=== PATIENT | male | born 1930 | race Caucasian/White ===

== ENCOUNTER → 2019-04-23 | Day surgery (SDC) | payer MEDICARE ==
[2019-04-19 10:46] LABS: BASOPHILS # (AUTO) 0.5 (0.0-0.1); BASOPHILS % 1.4 % (0.0-1.0); EOSINOPHILS # (AUTO) 0.6 (0.0-0.4); EOSINOPHILS % 1.7 % (0.0-6.0); HEMATOCRIT 49.1 % (38.2-49.6); HEMOGLOBIN 13.2 g/dL (14.0-18.0); LYMPHOCYTES # (AUTO) 13.1 (1.0-3.2); LYMPHOCYTES % 34.6 % (18.0-39.1); MEAN CORPUSCULAR HEMOGLOBIN 19.8 pg (28-32); MEAN CORPUSCULAR HGB CONC 26.9 g/dL (31-35); MEAN CORPUSCULAR VOLUME 73.8 fL (81-99); MONOCYTES # (AUTO) 1.4 (0.2-0.8); MONOCYTES % 3.7 % (4.4-11.3); NEUTROPHILS # (AUTO) 21.9 (2.1-6.9); NEUTROPHILS % 57.6 % (38.7-80.0); PLATELET COUNT 590 x10e3/uL (140-360); RED BLOOD COUNT 6.65 x10e6/uL (4.3-5.7); RED CELL DISTRIBUTION WIDTH 21.4 % (11.7-14.4)
[2019-04-19 11:00] LABS: INR 3.36; PROTHROMBIN TIME 34.8 seconds (11.9-14.5)
[2019-04-19 11:10] LABS: ALBUMIN 3.7 g/dL (3.5-5.0); ALBUMIN/GLOBULIN RATIO 1.3 (0.8-2.0); ANION GAP 10.5 mmol/L (8-16); CREATININE, SERUM 1.25 mg/dL (0.72-1.25); POTASSIUM 4.5 mmol/L (3.5-5.1)
[~2019-04-23] VITALS: Ht 182.9 cm; Wt 77.1 kg
[~2019-04-23] MED LIST: ALPRAZOLAM 0.5 MG TAB ONE; AMLODIPINE BESYL5 MG PO; ASPIRIN 325 MG TAB ONE; ASPIRIN81 MG PO; ATROPINE SULFATE 0.1 MG/ML 10ML SYR ONE; DIOVAN HCT 3201 EAC1 PO; DIOVAN160 MG PO; DIPHENHYDRAMINE HCL 25 MG CAP ONE; FENTANYL CITRATE/PF 100MCG/2 ML INJ ONE; HEPARIN SOD/SOD CHLORIDE 2,000 ML ONE; HYDROXYUREA500 MG PO; IOPAMIDOL 300MG/ML 100 ML INFUS..BTL IV ONE; IRBESARTAN-HCT1 EAC1 PO; IRON PO; LIDOCAINE HCL 2% LOCAL 20 ML VIAL ONE; METOPROLOL SUCC50 MG PO; MIDAZOLAM HCL 2 MG/2 ML VIAL ONE; NITROGLYCERIN/D5W 200 MCG/ML 250 ML ONE; PANTOPRAZOLE SO40 MG PO; SODIUM CHLORIDE 0.9% 1000ML 1,000 ML ONE; TICAGRELOR 90 MG TABLET ONE; VERAPAMIL HCL 2.5 MG/ML 2 ML VIAL ONE; XARELTO10 MG PO
[2019-04-23 11:45] VITALS: BP 166/63
--- NOTE | 2019-04-23 11:45 | NUR ---
pt in PACU 20, prepped for procedure. Alert oriented and appropriate, PERRLA, respirations even and unlabored to room air. Pulses x4 extremities equal and faint. Pedal pulses PT strong DP weak marked. bilateral pedal with edema Left > right +2-3 pitting. Cap fill brisk < 3 sec. Skin warm and dry integrity appears intact in general. IV 20g x1 started to left anterior forearm and presents healthy w/o s/s of infiltration or complaint. NS 0.9% started at 100ml/hr per dial flow. Abdomen soft and supple. pt offered toileting, denies need to urinate or defecate. Personal affects with patient. Family at bedside. Pt and family verbalizes understanding of POC. Pre-Op Meds benadryl and xanax given. bed low and locked, side rails up x2 and call light at side. -cgf
[2019-04-23 13:59] LABS: BASOPHILS # (AUTO) 0.4 (0.0-0.1); BASOPHILS % 1.3 % (0.0-1.0); EOSINOPHILS # (AUTO) 0.6 (0.0-0.4); EOSINOPHILS % 1.8 % (0.0-6.0); HEMATOCRIT 44.9 % (38.2-49.6); HEMOGLOBIN 12.1 g/dL (14.0-18.0); LYMPHOCYTES % 32.8 % (18.0-39.1); MEAN CORPUSCULAR HEMOGLOBIN 19.7 pg (28-32); MEAN CORPUSCULAR HGB CONC 26.9 g/dL (31-35); MONOCYTES # (AUTO) 1.3 (0.2-0.8); MONOCYTES % 4.2 % (4.4-11.3); PLATELET COUNT 568 x10e3/uL (140-360); RED BLOOD COUNT 6.15 x10e6/uL (4.3-5.7)
[2019-04-23 14:43] LABS: INR 1.31; PROTHROMBIN TIME 16.9 seconds (11.9-14.5)
[2019-04-23 16:30] VITALS: BP 141/89
--- NOTE | 2019-04-23 16:30 | NUR ---
1630 Received report Marito Deleon Rn, Identiferx2 Peripheral fix Dr Eid. Back to baseline orientation Respiration shallow and regular.100% sat on room air. Denies necessity to defecate or urinate. Peripheral iv infusing w/o s/s infiltration. Left Angioseal intact No gross issues pain pallor pressure or dysrhythmia. PPx4 intact Discharge planning done and hs copies aware of importance of f/o up care Dr Eid office. 1700 Iv removed site w/o s/s infiltration Coban dressing in place. Discharge home w/o c/o to private car with family medical van driver. Home with RN escort per w/c. ds/rn
[2019-04-23 16:45] VITALS: BP 163/77
[2019-04-23 17:00] VITALS: BP_SYST 135; BP_SYST 138; BP_DIAS 80; BP_DIAS 88
[2019-04-23 17:01] LABS: BAND NEUTROPHILS % (MANUAL) 1 %; EOSINOPHILS % (MANUAL) 1 % (0-7); LYMPHOCYTES % (MANUAL) 17 % (19-48); MONOCYTES % (MANUAL) 1 % (3.4-9.0); NEUTROPHILS % (MANUAL) 78 % (40-74)
[2019-04-23 17:04] LABS: PLATELET ESTIMATE MODERATELY INCREASED; RBC MORPHOLOGY COMMENT ABNORMAL
[2019-04-23 17:07] LABS: PLATELET MORPHOLOGY COMMENT MANY LARGE
[2019-04-23 17:10] LABS: ANISOCYTOSIS MODERATE; HYPOCHROMASIA SLIGHT; MICROCYTOSIS MODERATE; POIKILOCYTOSIS MARKED
[2019-04-23 17:12] LABS: ELLIPTOCYTE, RBC SLIGHT; OVALOCYTES FEW; TARGET CELLS FEW
[2019-04-23 17:14] LABS: SMUDGE CELLS MODERATE
--- NOTE | 2019-04-23 19:04 | Operative Report ---
DATE OF PROCEDURE: 04/23/2019 SURGEON: Meek Eid MD INDICATION: Peripheral arterial disease, claudication. PROCEDURES PERFORMED: 1. Abdominal aortogram. 2. Bilateral lower extremity angiograms. 3. Selective third-order catheter placement in the left femoral artery to the right superficial femoral artery. 4. Additional third-order catheter placement from the left femoral artery to the right anterior tibial artery. 5. Atherectomy and balloon angioplasty of the right popliteal artery. 6. Secondary thrombectomy of the right popliteal artery. 7. Atherectomy and balloon angioplasty of the right anterior tibial artery. 8. Deployment of left groin Perclose. COMPLICATIONS: None. BLOOD LOSS: 5 mL. RECOMMENDATIONS: Xarelto and aspirin for life. Staged intervention on the left femoral and anterior tibial artery. DESCRIPTION OF PROCEDURE: Access obtained in the left femoral artery. A 6-Estonian sheath was placed. Abdominal aortogram demonstrated widely patent abdominal aorta and iliacs bilaterally. Proximal femoral artery is widely patent. Left leg angiogram was performed demonstrating widely patent femoral popliteal arteries on the left side. Focal 90% stenosis of the ostial left anterior tibial artery with three-vessel runoff. Right leg runoff could not be well visualized. The catheter was then advanced from the left femoral artery to the right femoral artery. It had a 90% stenosis of the right popliteal artery at the knee joint was noted. Distal vessels could not be seen. The catheter then advanced to the right anterior tibial artery, 80% stenosis on the right anterior tibial artery is noted. Three vessel runoff. A decision was made to intervene on the right popliteal and anterior tibial arteries. The patient received heparin for anticoagulation. The sheath was exchanged to a 6-Estonian 45 cm sheath. Orbital atherectomy was performed of the right popliteal and anterior tibial artery. Large amounts of visible thrombus in the popliteal artery was noted. Manual aspiration secondary thrombectomy was needed. Balloon angioplasty of the anterior tibial artery with a 4 mm drug-coated balloon as well as the popliteal artery with a 6 mm drug-coated balloon was performed. Excellent end result. Three-vessel runoff. No complications. Left groin repaired using Perclose. The patient was discharged home same day. MD WHITLEY Vasquez/MODL /[id number]
== END | disposition home or self-care (01) ==
LOC: CATH LAB 11:15
PROVIDERS: ATTEND Internal Medicine Interventional Cardiology
DX: I70.211 Atherosclerosis of native arteries of extremities with intermittent claudication, right leg (principal); Z01.812 Encounter for preprocedural laboratory examination; Z79.02 Long term (current) use of antithrombotics/antiplatelets; Z79.82 Long term (current) use of aspirin; J44.9 Chronic obstructive pulmonary disease, unspecified
CPT/HCPCS: 36247; 36415 ×2; 37186; 37225; 37229; 75625; 80053; 85025 ×2; 85610 ×2; C1724; C1725 ×2; C1769 ×2; C1887 ×2; J2001; J2250; J7030; Q9967; 75716

== ENCOUNTER 2019-05-07 14:26 | Inpatient (IN) | payer MEDICARE ==
[~2019-05-07] VITALS: Ht 185.4 cm; Wt 73.0 kg
[~2019-05-07 14:26] MED LIST changes: -ALPRAZOLAM 0.5 MG TAB ONE; -ASPIRIN 325 MG TAB ONE; -ATROPINE SULFATE 0.1 MG/ML 10ML SYR ONE; -DIPHENHYDRAMINE HCL 25 MG CAP ONE; -FENTANYL CITRATE/PF 100MCG/2 ML INJ ONE; -HEPARIN SOD/SOD CHLORIDE 2,000 ML ONE; -IOPAMIDOL 300MG/ML 100 ML INFUS..BTL IV ONE; -LIDOCAINE HCL 2% LOCAL 20 ML VIAL ONE; -MIDAZOLAM HCL 2 MG/2 ML VIAL ONE; -NITROGLYCERIN/D5W 200 MCG/ML 250 ML ONE; -SODIUM CHLORIDE 0.9% 1000ML 1,000 ML ONE; -TICAGRELOR 90 MG TABLET ONE; -VERAPAMIL HCL 2.5 MG/ML 2 ML VIAL ONE
[2019-05-07] MEDS ORDERED: SODIUM CHLORIDE 0.9% 1000ML 1,000 ML IV STA (14:41)
[2019-05-07 15:55] LABS: BASOPHILS # (AUTO) 0.5 (0.0-0.1); BASOPHILS % 1.1 % (0.0-1.0); EOSINOPHILS # (AUTO) 0.5 (0.0-0.4); EOSINOPHILS % 1.1 % (0.0-6.0); HEMATOCRIT 42.3 % (38.2-49.6); HEMOGLOBIN 10.8 g/dL (14.0-18.0); LYMPHOCYTES # (AUTO) 17.8 (1.0-3.2); LYMPHOCYTES % 40.2 % (18.0-39.1); MEAN CORPUSCULAR HEMOGLOBIN 19.8 pg (28-32); MEAN CORPUSCULAR HGB CONC 25.5 g/dL (31-35); MEAN CORPUSCULAR VOLUME 77.5 fL (81-99); MONOCYTES # (AUTO) 1.1 (0.2-0.8); MONOCYTES % 2.6 % (4.4-11.3); NEUTROPHILS # (AUTO) 23.7 (2.1-6.9); NEUTROPHILS % 53.5 % (38.7-80.0); RED BLOOD COUNT 5.46 x10e6/uL (4.3-5.7); RED CELL DISTRIBUTION WIDTH 23.7 % (11.7-14.4)
[2019-05-07 16:01] LABS: INR 2.94; PROTHROMBIN TIME 31.4 seconds (11.9-14.5)
[2019-05-07 16:02] LABS: PARTIAL THROMBOPLASTIN TIME 56.4 seconds (23.8-35.5)
[2019-05-07 16:11] LABS: PLATELET COUNT 1255 x10e3/uL (140-360)
--- NOTE | 2019-05-07 16:33 | NUR ---
PT UPDATED ON POC/PENDING ORDERS. RE-DRAW DONE ON A GREEN TOP PER LAB; 1ST TUBE HEMOLYZED
[2019-05-07 17:01] LABS: ALANINE AMINOTRANSFERASE 13 IU/L (0-55); ALBUMIN 3.2 g/dL (3.5-5.0); ALBUMIN/GLOBULIN RATIO 1.3 (0.8-2.0); ALKALINE PHOSPHATASE 127 IU/L (40-150); ANION GAP 11.4 mmol/L (8-16); BLOOD UREA NITROGEN 25 mg/dL (7-26); BUN/CREATININE RATIO 23 (6-25); CALCIUM 8.2 mg/dL (8.4-10.2); CARBON DIOXIDE 19 mmol/L (22-29); CHLORIDE 107 mmol/L (98-107); CREATINE KINASE 38 IU/L (30-200); CREATININE, SERUM 1.09 mg/dL (0.72-1.25); EST GLOMERULAR FILTRATION RATE > 60 ML/MIN (60-); GLUCOSE 92 mg/dL (74-118); POTASSIUM 4.4 mmol/L (3.5-5.1); SODIUM 133 mmol/L (136-145)
--- NOTE | 2019-05-07 18:00 | Diagnostic Imaging Report ---
EXAM: CT of the abdomen and pelvis WITH contrast HISTORY: R/O RETROPERITONEAL HEMATOMA, weakness, abdominal distention COMPARISON: CT of the evident pelvis March 26, 2016. TECHNIQUE: The abdomen and pelvis were scanned utilizing a multidetector helical scanner. Coronal and sagittal reformats are provided. PROTOCOL: Routine IV CONTRAST: 100 cc of Isovue-370. ORAL CONTRAST: Water RADIATION DOSE: Total DLP: 282.9 mGy*cm Estimated effective dose: (DLP x 0.015 x size factor) Dose modulation, iterative reconstruction, and/or weight based adjustment of the mA/kV was utilized to reduce the radiation dose to as low as reasonably achievable. COMPLICATIONS: None FINDINGS: LOWER THORAX: Unremarkable. HEPATOBILIARY: No mass. No biliary dilation. Metallic clips in the right upper quadrant of the abdomen are compatible with prior cholecystectomy. SPLEEN: Interval increase in the size of the spleen, now 16.2 cm. PANCREAS: No focal masses or ductal dilatation. ADRENALS: No discrete adrenal nodule. KIDNEYS/URETERS: No hydronephrosis, stones, or definite solid mass lesions. PELVIC ORGANS/BLADDER: The visualized pelvic organs appear unremarkable. GI TRACT: No dilation or wall thickening identified. Colonic diverticulosis. The stomach is decompressed, which limits evaluation. PERITONEUM / RETROPERITONEUM: No free air or fluid. LYMPH NODES: No pathologically enlarged lymph node. VESSELS: Diffuse scattered atherosclerotic vascular calcifications. BONES: No aggressive osseous lesion or acute fracture. Multilevel degenerative changes, most notably at L4-5. SOFT TISSUES: Within the left anterior abdominal wall musculature, interval development of a iso to hyperintense, mildly heterogeneous collection measuring up to 6.7 cm (AP) x 8.5 cm (ML) x 21.5 cm (CC). IMPRESSION: Findings compatible with interval development of a left anterior abdominal wall intramuscular hematoma, correlate for potential underlying etiology. Signed by: Dr. Narinder Hernandez D.O., M.M.M. on 05/07/2019 5:56 PM
[2019-05-07] MEDS ORDERED: METOPROLOL SUC100 MG PO (19:05)
[2019-05-07] MEDS ORDERED: XARELTO15 MG PO (19:05)
[2019-05-07] MEDS ORDERED: AMLODIPINE BESY10 MG PO (19:05)
[2019-05-07] MEDS ORDERED: ONDANSETRON HCL INJ 2MG/ML 2ML 2 MG/ML VIAL IV PRN (19:15)
[2019-05-07] MEDS ORDERED: SODIUM CHLORIDE FLUSH 10 ML SYR INJ PRN (19:15)
[2019-05-07 20:11] LABS: BILIRUBIN,URINE NEGATIVE (NEGATIVE); CLARITY,URINE CLEAR (CLEAR); COLOR,URINE YELLOW (YELLOW); KETONES,URINE NEGATIVE (NEGATIVE); LEUKOCYTE ESTERASE ,URINE NEGATIVE (NEGATIVE); NITRITE,URINE NEGATIVE (NEGATIVE); PROTEIN,URINE DIPSTICK NEGATIVE (NEGATIVE); URINE UROBILINOGEN 0.2 mg/dL (0.2 - 1)
--- OUTSIDE RECORDS SUMMARY | 2019-05-07 20:19 | XMS REPORT ---
Author Author [facility] Address Unknown Phone Unavailable Care Team Providers Care Environmental Planning Engineer Name Role Phone Sherman GU Unavailable Unavailable Problems This patient has no known problems. Allergies, Adverse Reactions, Alerts This patient has no known allergies or adverse reactions. Medications This patient has no known medications. Results Test Description Test Time Test Comments Text Results Atomic Results Result Comments CT ABDOMEN/PELVIS W 2019-05-07 17:49:00 [place] [address] Patient Name: JO ANN WOOTEN MR #: [id number] : 1930 Age/Sex: 89/M Req #: [id number] Adm Physician: Ordered by: QUITA GU MD Report #: [id number] Location: ER Room/Bed: Procedure: [id number] CT/CT ABDOMEN/PELVIS W Exam Date: 05/07/19 Exam Time: 1725 REPORT STATUS: Signed EXAM: CT of the abdomen and pelvis WITH contrast HISTORY: R/O RETROPERITONEAL HEMATOMA, weakness, abdominal distention COMPARISON: CT of the evident pelvis March 26, 2016. TECHNIQUE: The abdomen and pelvis were scanned utilizing a multidetector helical scanner. Coronal and sagittal reformats are provided. PROTOCOL: Routine IV CONTRAST: 100 cc of Isovue-370. ORAL CONTRAST: Water RADIATION DOSE: Total DLP: 282.9 mGy*cm Estimated effective dose: (DLP x 0.015 x size factor) Dose modulation, iterative reconstruction, and/or weight based adjustment of the mA/kV was utilized to reduce the radiation dose to as low as reasonably achievable. COMPLICATIONS: None FINDINGS: LOWER THORAX: Unremarkable. HEPATOBILIARY: No mass. No biliary dilation. Metallic clips in the right upper quadrant of the abdomen are compatible with prior cholecystectomy. SPLEEN: Interval increase in the size of the spleen, now 16.2 cm. PANCREAS: No focal masses or ductal dilatation. ADRENALS: No discrete adrenal nodule. KIDNEYS/URETERS: No hydronephrosis, stones, or definite solid mass lesions. PELVIC ORGANS/BLADDER: The visualized pelvic organs appear unremarkable. GI TRACT: No dilation or wall thickening identified. Colonic diverticulosis. The stomach is decompressed, which limits evaluation. PERITONEUM / RETROPERITONEUM: No free air or fluid. LYMPH NODES: No pathologically enlarged lymph node. VESSELS: Diffuse scattered atherosclerotic vascular calcifications. BONES: No aggressive osseous lesion or acute fracture. Multilevel degenerative changes, most notably at L4-5. SOFT TISSUES: Within the left anterior abdominal wall musculature, interval development of a iso to hyperintense, mildly heterogeneous collection measuring up to 6.7 cm (AP) x 8.5 cm (ML) x 21.5 cm (CC). IMPRESSION: Findings compatible with interval development of a left anterior abdominal wall intramuscular hematoma, correlate for potential underlying etiology. Signed by: Bere BurrowsOYanci, M.M.M. on 05/07/2019 5:56 PM Dictated By: NICKIE PEDRAZA DO 56 Transcribed By: ARCELIA on 05/07/191755 COPY TO: QUITA GU MD
[2019-05-07 20:20] VITALS: BP 166/74
[2019-05-07 20:26] LABS: BACTERIA,URINE FEW /HPF; MUCUS,URINE FEW (RARE)
--- NOTE | 2019-05-07 20:30 | NUR ---
Pt arrived to the unit from er in a stretcher with c/o hypotension and diziness.as per pt statement he has blood disorder.assessment done.aaox3.no resp.distress.hematoma noted @ abd. and back. tele #1 placed sinus rhythm.ambulates with walker.voided.oriented to the unit.bed locked and in lowest position.phone and call light within reach.instructed to call for assistance as needed.
[2019-05-07 20:40] VITALS: BP 165/84
[2019-05-07 21:32] VITALS: BP 165/84
[2019-05-08] VITALS (8 sets, daily range): BP systolic 136–168; BP diastolic 60–75
[2019-05-08 00:05] LABS: HEMATOCRIT 43.3 % (38.2-49.6)
--- NOTE | 2019-05-08 00:15 | NUR ---
Fresh frozen plasma transfusion started after verifieing with Jitendra Mon.v/s stable.keep monitor the pt.
[2019-05-08 00:47] LABS: HEMOGLOBIN 11.7 g/dL (14.0-18.0)
--- NOTE | 2019-05-08 04:21 | NUR ---
FRESH FROZEN PLASMA TRANSFUSION COMPLETED.V/S STABLE.TOLERATED WELL.
[2019-05-08] MEDS ORDERED: IOPAMIDOL 370 MG/ML 200 ML INFUS..BTL INJ ONE (06:03)
[2019-05-08] MEDS ORDERED: SODIUM CHLORIDE 0.9% 50ML 50 ML ONE (06:03)
[2019-05-08 06:30] LABS: BASOPHILS # (AUTO) 0.5 (0.0-0.1); BASOPHILS % 1.1 % (0.0-1.0); EOSINOPHILS # (AUTO) 0.5 (0.0-0.4); HEMATOCRIT 39.9 % (38.2-49.6); HEMOGLOBIN 10.8 g/dL (14.0-18.0); LYMPHOCYTES # (AUTO) 18.5 (1.0-3.2); LYMPHOCYTES % 38.8 % (18.0-39.1); MEAN CORPUSCULAR HEMOGLOBIN 20.3 pg (28-32); MEAN CORPUSCULAR HGB CONC 27.1 g/dL (31-35); MEAN CORPUSCULAR VOLUME 74.9 fL (81-99); MONOCYTES # (AUTO) 1.3 (0.2-0.8); MONOCYTES % 2.7 % (4.4-11.3); NEUTROPHILS # (AUTO) 26.2 (2.1-6.9); NEUTROPHILS % 55.1 % (38.7-80.0); PLATELET COUNT 1167 x10e3/uL (140-360); RED BLOOD COUNT 5.33 x10e6/uL (4.3-5.7); RED CELL DISTRIBUTION WIDTH 23.3 % (11.7-14.4)
[2019-05-08 06:52] LABS: INR 1.6; PROTHROMBIN TIME 19.7 seconds (11.9-14.5)
--- NOTE | 2019-05-08 07:00 | NUR ---
Patient stated that had a small bowel movement and voided.report taken to the oncoming rn.walking rounds done.stable condition.
--- NOTE | 2019-05-08 07:00 | NUR ---
Rcvd patient in report this am. Patient is asleep in bed at this time. No s/s of distress noted
[2019-05-08 07:01] LABS: ANION GAP 12.1 mmol/L (8-16); CALCIUM 8.5 mg/dL (8.4-10.2); CREATININE, SERUM 2.26 mg/dL (0.72-1.25); POTASSIUM 4.1 mmol/L (3.5-5.1)
[2019-05-08] MEDS: DEXTROSE 5%/0.45% SOD CHL 1,000 ML IV SCH ×3 (10:27→22:52)
[2019-05-08] MEDS: PANTOPRAZOLE SOD 40 MG TABEC PO SCH ×2 (10:28→16:34)
--- NOTE | 2019-05-08 10:29 | NUR ---
EDUCATED ABOUT IMM, SIGNED, FILED IN CHART, WITH COPY LEFT WITH FAMILY AT BEDSIDE.
--- NOTE | 2019-05-08 12:20 | NUR ---
Patient is AAOx3. Patient lung boo clear to auscultation. Bowel sounds present x4. Patient having loose stools. New order for a sample to be obtained. Patient ambulates on his own with a walker. No edema noted. Patient has bruising and a hematoma to his abdomen. Bruising extends to his back as well. Patient is post op heart cath 2 weeks ago. NO c/o pain
--- NOTE | 2019-05-08 15:30 | Consultation ---
DATE OF CONSULTATION: 05/08/2019 REASON FOR CONSULTATION: Followup of myeloproliferative syndrome-polycythemia vera, admitted with hematoma. HISTORY OF PRESENT ILLNESS: Thank you very kindly, Dr. Ceja and Dr. Eid, for letting me participate in the care of this very pleasant 89-year-old male, who is well known to me. 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 He has been managed with phlebotomy targeting hematocrit of about 45. Hydroxyurea 500 mg, frequency adjusted based on his WBC count and platelet count along with 81 mg of aspirin had been used for managing his disease. He has done well without any complications from the disease or therapy. He also has been on Xarelto for atrial fibrillation. Additional comorbidities have included hypertension and chronic obstructive pulmonary disease. The patient had angioplasty and stent placement for his right femoral artery about 2 weeks back with left femoral artery approach. He was admitted to the hospital with complaints of weakness, feeling dizzy, and bluish-block discoloration of his lower abdominal area especially on the right side. I was called from the emergency room with abnormal CBC results with white count of 44,000, hemoglobin of 10.8, hematocrit of 42.3, and platelet count of 1.2 million. There is no history of fever. No history of gross bleeding from any site externally besides discoloration of the skin of the lower abdomen. The patient stated that he was asked to take aspirin, but did not take aspirin. Additional details for history are as documented in the chart. PHYSICAL EXAMINATION: GENERAL: An elderly gentleman, very comfortable in bed and able to carry on normal conversation. He did not offer any complaints this morning beside some weakness. VITAL SIGNS: As recorded in the chart. HEENT: Conjunctivae were little pale. There is no definite icterus. There is no palpable adenopathy. LUNGS: Clear except for prolonged expiration. CARDIAC: Heart size cannot be well demarcated. Rhythm is regular. ABDOMEN: Soft. There is extensive discoloration from the hematoma on the right side extending on to the left groin area. There is no pedal edema and no calf muscle tenderness. LABORATORY DATA: Admission labs revealed white count of 44.28 and followup today on 05/08 is 47.6. Hemoglobin was 10.8 on admission and stable this morning at 10.8, platelet count of 1.2 million on admission and 1.1 million today. IMAGING DATA: Imaging of the abdomen with CT revealed left anterior abdominal wall intramuscular hematoma. IMPRESSION: Polycythemia vera, myeloproliferative syndrome, MINERVA-2 mutation positive, diagnosed initially in 2003 and well controlled with combination of phlebotomy, hydroxyurea, now admitted with hematoma. The patient appears to be stable with hematocrit stabilizing yesterday. I had ordered 1 jumbo unit of fresh frozen plasma to be infused last night. I would hold aspirin and Xarelto at the present. Once he is stable for few days, Xarelto could be restarted and subsequently cautiously 81 mg of aspirin could also be restarted. He will continue on hydroxyurea 500 daily and after discharge, I will follow up in the office and adjust the dose of hydroxyurea based on his counts. Thank you most kindly for letting me participate in his care. Imani Nguyen MD MM/MODL /[id number] cc: Meek Eid MD
--- NOTE | 2019-05-08 18:10 | NUR ---
Per Dr. Ceja patient may be discharged tomorrow morning.
[2019-05-08] MEDS ORDERED: ACETAMINOPHEN 325 MG TAB PO PRN (18:15)
--- NOTE | 2019-05-08 19:02 | NUR ---
WALKING ROUNDS PERFORMED, RECEIVED PT LAYING SEMI FOWLERS IN BED. AAOX3, RR EVEN AND NON-LABORED, ON ROOM AIR. NO S/SX OF DISTRESS NOTED. LEFT PT LAYING SEMI FOWLERS IN BED, BED IN LOW LOCKED POSITION, SIDE RAILS UPX2, CALL LIGHT AND PHONE WITHIN REACH.
--- NOTE | 2019-05-08 19:05 | NUR ---
Report given and walking rounds done.
--- NOTE | 2019-05-08 20:42 | NUR ---
PAGE PLACED FOR MD CD FOR ORDER CLARIFICATION ON Q6 HEMATOCRIT. WAITING FOR CALL BACK.
--- NOTE | 2019-05-08 21:02 | NUR ---
SPOKE WITH MD DC CONCERNING ORDERS FOR Q6 HEMATOCRITS. OK TO STOP Q6 HEMATOCRITS AND TO RESTART XARELTO ON 05/10. NOTIFIED PHARMACY OF XARELTO RESTART.
--- NOTE | 2019-05-08 23:13 | Consultation ---
DATE OF CONSULTATION: 05/08/2019 Cardiology Consultation REASON FOR CONSULTATION: Syncope. HISTORY OF PRESENT ILLNESS: This is an 89-year-old man with history of peripheral arterial disease, status post recent right popliteal and anterior tibial artery atherectomy and drug-coated balloon angioplasty with resulting 3-vessel runoff below the knee with residual 90% stenosis of the left anterior tibial artery, atrial tachycardia, atrial fibrillation, COPD, and polycythemia vera with myeloproliferative syndrome, who was sent to the ER from clinic due to hypotension. The patient had recently undergone right lower extremity revascularization as above and was following up in the office for his postprocedure evaluation. At that time, he was noted to be significantly hypotensive with dizziness and near syncopal episodes. He was bolused and transported to the ER for further evaluation. In the ER, he was found to have a white count of 44,000 with a hemoglobin of 10.8 and platelets of 11,067. CT abdomen and pelvis was performed due to bruising on physical exam and the patient was found to have left anterior abdominal wall intramuscular hematoma. The patient was therefore admitted to the hospital for further evaluation. The patient currently denies cardiac complaints. Denies chest pain, shortness of breath, palpitations, edema, orthopnea, or PND. He reports his lightheadedness has since resolved, but notes he developed diarrhea earlier today. He denies any fever or chills. REVIEW OF SYSTEMS: Negative as per HPI. PAST MEDICAL HISTORY: 1. Peripheral arterial disease with recent revascularization as above. 2. Atrial fibrillation. 3. Hypertension. 4. COPD. 5. Polycythemia vera with myeloproliferative syndrome. PAST SURGICAL HISTORY: Cholecystectomy. ALLERGIES: PLEASE SEE EMR. MEDICATIONS: Please see medication list. SOCIAL HISTORY: No tobacco. FAMILY HISTORY: Noncontributory to current illness. PHYSICAL EXAMINATION: VITAL SIGNS: Temperature 96.5 degrees, pulse 52, respiratory rate 18, blood pressure 139/65, and oxygen saturation 99% on room air. GENERAL: Awake and alert elderly man, in no acute distress. HEENT: Normocephalic, atraumatic. Pupils equal. No scleral icterus. NECK: Supple. No thyroid or cervical lymphadenopathy. No carotid bruits. LUNGS: Clear to auscultation bilaterally. No wheezes or crackles. CARDIOVASCULAR: Normal rate. Regular rhythm. No murmur. Normal S1, S2. ABDOMEN: Soft, nontender. Ecchymosis is present on the abdomen. EXTREMITIES: No edema. Ecchymoses are also present at recent cardiac catheterization site. NEUROLOGIC: Nonfocal exam. LABORATORY DATA: WBC 47.65, hemoglobin 10.8, hematocrit 39.9, and platelets 11,067. Sodium 132, potassium 4.1, chloride 106, CO2 of 19, BUN 28, and creatinine 2.26. Telemetry, sinus bradycardia, otherwise normal ECG. IMPRESSION: 1. Hypotension, now resolved. 2. Abdominal wall intramuscular hematoma. 3. Leukocytosis. 4. Peripheral arterial disease with recent right lower extremity revascularization. 5. Hypertension. 6. Chronic obstructive pulmonary disease. 7. Atrial fibrillation. 8. Agree with holding anticoagulants and anti-platelet therapy at this time until H and H stabilize. Continue home cardiac medications otherwise. Monitor closely on telemetry since stool studies. Thank you for this consult. We will continue to follow. Rachel Wooten MD ABS/MODL /[id number]
--- NOTE | 2019-05-08 23:58 | Discharge Summary ---
HISTORY: An 89-year-old male, who has past medical history positive for peripheral vascular disease, status post recent stent placement on the right femoral artery by Dr. Eid, history of hypertension, history of polycythemia vera, history of myeloproliferative disorder. The patient apparently had a near syncopal episode at Dr. Eid's office. He was found to have abdominal wall hematoma. He was transferred to the hospital. Vital signs were stable. Hemoglobin and hematocrit were stable. The patient is going home tomorrow. PHYSICAL EXAMINATION: HEART: Showed regular rhythm. Normal S1 and S2 sound. LUNGS: Clear bilaterally. ABDOMEN: Soft. He has hematoma on the left flank area. EXTREMITIES: Show no evidence of cyanosis or hematoma. Pulses 1 to 2+ bilaterally. FINAL IMPRESSION: 1. Near syncopal episode. 2. Abdomen wall hematoma. 3. Peripheral vascular disease. 4. Hypertension with chronic renal insufficiency. 5. Myeloproliferative disorder. 6. Polycythemia vera. 7. Aic renal failure stage 3. PLAN OF TREATMENT: We are going to repeat BMP tomorrow. The patient will go home tomorrow to follow up with his primary care physician. Follow up with Dr. Eid, Cardiology and Dr. Nguyen, Hematology. He is going to continue hydroxyurea . MD BEN Paredes/JAN /[id number]
[2019-05-09] VITALS: BP 147/91
--- NOTE | 2019-05-09 02:03 | History and Physical ---
HISTORY OF PRESENT ILLNESS: An 89-year-old male, who has a past medical history positive for myelodysplastic syndrome, polycythemia vera, peripheral vascular disease, status post recent stent placement by Dr. Eid, Cardiology. He was waiting for Dr. Eid to see him. Apparently, had a near syncopal episode, came to the hospital. The patient was found to have elevated white blood count, hematoma of the abdomen, which is resolving. The patient is going to be discharged home tomorrow. The patient was seen by Dr. Nguyen, Hematology, who has treated the patient for polycythemia vera, myelodysplastic syndrome. The patient has no significant complaint. He is going to go home today. He will go home tomorrow. REVIEW OF SYSTEMS: CARDIOVASCULAR: No chest pain or palpitation. RESPIRATORY: No shortness of breath. No cough. GASTROINTESTINAL: No nausea. No vomiting. No diarrhea. GENITOURINARY: No frequency. No dysuria. ALLERGIES: HE IS NOT ALLERGIC TO ANYTHING. PAST MEDICAL HISTORY: 1. Peripheral vascular disease, status post recent stent placement. 2. Myeloproliferative syndrome. 3. Polycythemia vera. 4. Hypertension. SOCIAL HISTORY: He does not smoke, does not drink. PHYSICAL EXAMINATION: VITAL SIGNS: Blood pressure 151/67, temperature 96.6, heart rate 53 per minute, respiratory rate 20 per minute, and oxygen saturation 98%. HEART: Showed regular rhythm. Normal S1, S2 sound. LUNGS: Clear bilaterally. ABDOMEN: Soft. EXTREMITIES: Show no evidence of cyanosis or hematoma. LABORATORY DATA: On BMP; sodium 133, potassium 4.1, chloride 106, CO2 of 19, BUN 28, creatinine 2.26, and glucose 110. On CBC; white blood count 47.6, hemoglobin 10.8, hematocrit 42.4, and platelet count 116,000. PT 19.7, INR 1.60, PTT 48.0, AST 22, ALT 13, total bilirubin 2.3, and alkaline phosphatase 127. IMPRESSION: 1. Near syncopal episode. 2. Abdominal wall hematoma. 3. Peripheral vascular disease, status post stent placement in the right leg. 4. Hypertension with chronic renal insufficiency. 5. Myeloproliferative syndrome. 6. Acute on chronic renal failure stage 3. PLAN OF TREATMENT: Continue D5 normal saline at 100 mL an hour. Repeat BMP tomorrow. Continue Zofran 4 mg IV q.4 hours as needed, metoprolol 100 mg daily, hydroxyurea 500 mg daily, Protonix 40 mg twice a day. Resume home medication. We are going to repeat a BMP tomorrow. The patient is going home tomorrow. Follow up with Dr. Nguyen in a week. MD BEN Paredes/JAN /[id number]
[2019-05-09 04:00] VITALS: BP 151/64
[2019-05-09] MEDS: DEXTROSE 5%/0.45% SOD CHL 1,000 ML IV SCH (04:26)
[2019-05-09 05:51] LABS: BASOPHILS # (AUTO) 0.4 (0.0-0.1); EOSINOPHILS # (AUTO) 0.8 (0.0-0.4); EOSINOPHILS % 1.9 % (0.0-6.0); HEMATOCRIT 38.8 % (38.2-49.6); HEMOGLOBIN 10.1 g/dL (14.0-18.0); LYMPHOCYTES # (AUTO) 14.3 (1.0-3.2); LYMPHOCYTES % 35.6 % (18.0-39.1); MEAN CORPUSCULAR HEMOGLOBIN 20.3 pg (28-32); MEAN CORPUSCULAR VOLUME 78.1 fL (81-99); MONOCYTES # (AUTO) 1.4 (0.2-0.8); MONOCYTES % 3.4 % (4.4-11.3); NEUTROPHILS # (AUTO) 22.8 (2.1-6.9); NEUTROPHILS % 56.9 % (38.7-80.0); PLATELET COUNT 958 x10e3/uL (140-360); RED BLOOD COUNT 4.97 x10e6/uL (4.3-5.7); RED CELL DISTRIBUTION WIDTH 23.7 % (11.7-14.4)
[2019-05-09 06:14] LABS: ALBUMIN 2.8 g/dL (3.5-5.0); ALBUMIN/GLOBULIN RATIO 1.2 (0.8-2.0); ANION GAP 10.5 mmol/L (8-16); CALCIUM 8.1 mg/dL (8.4-10.2); CREATININE, SERUM 3.88 mg/dL (0.72-1.25); POTASSIUM 4.5 mmol/L (3.5-5.1)
[2019-05-09 08:46] VITALS: BP 154/67
[2019-05-09] MEDS: PANTOPRAZOLE SOD 40 MG TABEC PO SCH (08:58)
[2019-05-09] MEDS ORDERED: IRBESARTAN 150 MG TAB PO SCH (09:00)
[2019-05-09] MEDS ORDERED: AMLODIPINE BESYLATE 10 MG TAB PO SCH (09:00)
[2019-05-09] MEDS ORDERED: HYDROCHLOROTHIAZIDE 25 MG TAB PO SCH (09:00)
[2019-05-09] MEDS ORDERED: NON-FORMULARY MEDICATION (Metoprolol Succinate 100 MG) PO SCH (09:00)
[2019-05-09] MEDS ORDERED: METOPROLOL SUCCINATE 50 MG TAB XL PO SCH (09:00)
[2019-05-09] MEDS ORDERED: HYDROXYUREA 500 MG CAPSULE PO SCH (09:00)
--- NOTE | 2019-05-10 05:55 | Progress Note ---
DATE: 05/09/2019 Cardiology Progress Note SUBJECTIVE: The patient denies chest pain or shortness of breath. OBJECTIVE: VITAL SIGNS: Temperature 97.1 degrees, pulse 60, respiratory rate 18, blood pressure 154/57, and oxygen saturation 96% on room air. GENERAL: Awake, alert, in no acute distress. LUNGS: Clear to auscultation bilaterally. No wheezes or crackles. CARDIOVASCULAR: Normal rate, regular rhythm. No murmur. Normal S1, S2. ABDOMEN: Soft and nontender. EXTREMITIES: No edema. CARDIAC MEDICATIONS: Hydrochlorothiazide 12.5 mg p.o. daily, irbesartan 300 mg p.o. daily, amlodipine 10 mg p.o. daily, metoprolol succinate 100 mg p.o. daily. LABORATORY DATA: WBC 40.11, hemoglobin 10.1, hematocrit 38.8, platelets 958. Sodium 135, potassium 4.5, chloride 105, CO2 of 24, BUN 33, creatinine 3.88. Telemetry; normal sinus rhythm. IMPRESSION: 1. Hypotension, now resolved. 2. Abdominal wall intramuscular hematoma. 3. Leukocytosis. 4. Peripheral arterial disease with recent right lower extremity revascularization. 5. Hypertension. 6. Chronic obstructive pulmonary disease. 7. Atrial fibrillation. RECOMMENDATIONS: The patient's blood pressure is elevated. Recommend resuming amlodipine and metoprolol. Would hold irbesartan given acute kidney injury. Continue to hold Xarelto for now. Recommend resuming aspirin at this time as H and H have been relatively stable. Monitor closely on telemetry during admission. Send stool studies. Thank you for this consult. We will continue to follow. Rachel Wooten MD ABS/MODL /[id number]
[2019-05-10] MEDS ORDERED: RIVAROXABAN 15 MG TABLET PO SCH (17:00)
== END 2019-05-09 10:40 | disposition home or self-care (01) | DRG 605 ==
LOC: ER 14:26 → ERHOLD 20:16 → MED/SURG 20:26
PROVIDERS: ADMIT Internal Medicine; ATTEND Internal Medicine
DX: S30.1XXA Contusion of abdominal wall, initial encounter (principal); N17.9 Acute kidney failure, unspecified; C94.6 Myelodysplastic disease, not elsewhere classified; I73.9 Peripheral vascular disease, unspecified; D45 Polycythemia vera; I12.9 Hypertensive chronic kidney disease with stage 1 through stage 4 chronic kidney disease, or unspecified chronic kidney disease; N18.3 Chronic kidney disease, stage 3 (moderate); Z95.820 Peripheral vascular angioplasty status with implants and grafts; I48.91 Unspecified atrial fibrillation; Z79.01 Long term (current) use of anticoagulants; J44.9 Chronic obstructive pulmonary disease, unspecified
CPT/HCPCS: 36415; 74177; 80048; 80053; 81001; 82550; 82553; 84484; 85014; 85018; 85025; 85610; 85730; 86850; 86900; 87086; 93005; 99284; J7030; P9017; Q9967

== ENCOUNTER 2019-05-14 09:41 | Inpatient (IN) | payer MEDICARE ==
[~2019-05-14] VITALS: Ht 162.6 cm; Wt 78.1 kg
[~2019-05-14 09:41] MED LIST changes: +AMLODIPINE BESY10 MG PO; +METOPROLOL SUC100 MG PO; +XARELTO15 MG PO
--- NOTE | 2019-05-14 09:57 | NUR ---
DR GU AT BEDSIDE FOR BLADDER SCAN.
--- NOTE | 2019-05-14 10:10 | NUR ---
BLADDER SCAN REVEALED >1000 CC RESIDUAL URINE. PATIENT REPORTS BEING UNABLE TO URINATE X 7 DAYS. FLORES CATHETER ORDERED AND INSERTED PER POLICY, 1000 CC CLEAR URINE DRAINED. URINE SAMPLE OBTAINED AND SENT TO LAB. PATIENT TOLERATED WELL.
[2019-05-14 10:13] LABS: BASOPHILS # (AUTO) 0.6 (0.0-0.1); BASOPHILS % 1.1 % (0.0-1.0); EOSINOPHILS # (AUTO) 1.1 (0.0-0.4); EOSINOPHILS % 1.8 % (0.0-6.0); HEMOGLOBIN 12.7 g/dL (14.0-18.0); LYMPHOCYTES # (AUTO) 26.1 (1.0-3.2); LYMPHOCYTES % 44.8 % (18.0-39.1); MEAN CORPUSCULAR HEMOGLOBIN 20.6 pg (28-32); MEAN CORPUSCULAR HGB CONC 27.6 g/dL (31-35); MEAN CORPUSCULAR VOLUME 74.4 fL (81-99); MONOCYTES # (AUTO) 2.1 (0.2-0.8); MONOCYTES % 3.6 % (4.4-11.3); NEUTROPHILS # (AUTO) 27.4 (2.1-6.9); NEUTROPHILS % 46.8 % (38.7-80.0); PLATELET COUNT 1021 x10e3/uL (140-360); RED BLOOD COUNT 6.18 x10e6/uL (4.3-5.7); RED CELL DISTRIBUTION WIDTH 24.9 % (11.7-14.4)
[2019-05-14] MEDS ORDERED: SODIUM CHLORIDE 0.9% 1000ML 1,000 ML IV SCH (10:15)
[2019-05-14 10:22] LABS: BILIRUBIN,URINE NEGATIVE (NEGATIVE); CLARITY,URINE SL CLOUDY (CLEAR); COLOR,URINE YELLOW (YELLOW); KETONES,URINE NEGATIVE (NEGATIVE); LEUKOCYTE ESTERASE ,URINE NEGATIVE (NEGATIVE); NITRITE,URINE NEGATIVE (NEGATIVE); PROTEIN,URINE DIPSTICK NEGATIVE (NEGATIVE); URINE UROBILINOGEN 0.2 mg/dL (0.2 - 1)
[2019-05-14 10:24] LABS: INR 1.27; PROTHROMBIN TIME 16.5 seconds (11.9-14.5)
[2019-05-14 10:25] LABS: PARTIAL THROMBOPLASTIN TIME 43.8 seconds (23.8-35.5)
[2019-05-14 10:34] LABS: ALBUMIN 3.2 g/dL (3.5-5.0); ALBUMIN/GLOBULIN RATIO 0.9 (0.8-2.0); ANION GAP 19.4 mmol/L (8-16); CALCIUM 8.6 mg/dL (8.4-10.2); CREATININE, SERUM 11.19 mg/dL (0.72-1.25); POTASSIUM 5.4 mmol/L (3.5-5.1)
[2019-05-14 10:37] LABS: EPITHELIAL CELLS,URINE RARE /LPF
[2019-05-14 10:39] LABS: BACTERIA,URINE RARE /HPF
[2019-05-14] MEDS ORDERED: SODIUM BICARBONATE 8.4% 50 ML in SODIUM CHLORIDE 0.45% 1,000 ML IV SCH (11:30)
[2019-05-14] MEDS ORDERED: VANCOMYCIN 1GM/NS 250 ML 250 ML IV ONE (12:30)
[2019-05-14] MEDS ORDERED: HYDROCODONE BIT/ACETAMINOPHEN 2.5 MG/108MG PER 5 ML SOLUTION PO PRN ×2 (12:30→12:45)
--- NOTE | 2019-05-14 13:47 | Diagnostic Imaging Report ---
EXAMINATION: Renal ultrasound. CLINICAL HISTORY :Acute kidney injury COMPARISON: CT abdomen and pelvis 05/07/2019 TECHNIQUE: Grayscale and color Doppler evaluation of the kidneys and bladder was performed in transverse and longitudinal planes. DISCUSSION: RIGHT KIDNEY: The right kidney measures 10.8 cm in length and shows normal echogenicity. No hydronephrosis, shadowing calculi or solid mass lesions. LEFT KIDNEY: The left kidney measures 11.2 cm in length and shows normal echogenicity. No hydronephrosis, shadowing calculi or solid mass lesions. BLADDER: Collapsed around a Church catheter. Incidental splenomegaly, with the spleen measuring 15 cm. Complex left abdominal wall fluid collection compatible with rectus sheath hematoma seen to better advantage on comparison CT. IMPRESSION: Unremarkable sonographic appearance of the kidneys. Additional findings as above. Signed by: Dr. Brant Rodriguez M.D. on 05/14/2019 1:44 PM
[2019-05-14 14:49] LABS: EOSINOPHILS % (MANUAL) 1 % (0-7); LYMPHOCYTES % (MANUAL) 20 % (19-48); MONOCYTES % (MANUAL) 2 % (3.4-9.0); NEUTROPHILS % (MANUAL) 77 % (40-74)
[2019-05-14 14:50] LABS: RBC MORPHOLOGY COMMENT NORMAL
[2019-05-14 14:51] LABS: PLATELET ESTIMATE MODERATELY INCREASED; PLATELET MORPHOLOGY COMMENT MODERATE GIANT
--- NOTE | 2019-05-14 15:19 | NUR ---
FLORES CATHETER CLAMPED AT [address] GORMAN. FLORES TO BE UNCLAMPED AT 1815. PATIENT GOING TO ROOM 295 - [facility] NOTIFIED AT THIS TIME OF FLORES INSTRUCTIONS.
[2019-05-14] MEDS ORDERED: CEFTRIAXONE SOD 2 GM/NS 100 ML 100 ML IV ONE (15:45)
[2019-05-14 17:00] VITALS: BP 156/68
[2019-05-14 17:28] VITALS: BP 154/67
[2019-05-14 18:00] VITALS: BP 137/53
--- NOTE | 2019-05-14 18:15 | NUR ---
Church catheter unclamped as instructed by , draining 300 cc of clear yellow urine. pt denies discomfort at this time.
[2019-05-14] MEDS: SODIUM BICARBONATE 8.4% SYRING 150 ML in DEXTROSE 5% 1,000 ML IV SCH (19:40)
--- NOTE | 2019-05-14 19:50 | NUR ---
SMALL AMOUNT OF DRY BLOOD NOTED TO THE PENIS, FLORES CATHETER CARE PROVIDED. LEFT ARM ELEVATED ON PILLOW TO HELP WITH THE SWELLING, PATIENT DENIES PAIN AT THIS TIME. CALL LIGHT WITHIN EASY REACH, HIS SON IS AT THE BEDSIDE.
[2019-05-14 20:00] VITALS: BP 159/68
[2019-05-14] MEDS: TAMSULOSIN HCL 0.4 MG CAP PO SCH (21:38)
--- NOTE | 2019-05-14 22:08 | Consultation ---
DATE OF CONSULTATION: 05/14/2019 HISTORY OF PRESENT ILLNESS: An 89-year-old gentleman, who has underlying history of polycythemia vera, has been maintained on hydroxyurea. Recent peripheral angioplasty and stent placement complicated by ecchymosis and hematoma involving his right groin and abdominal wall. That is resolving. He went to Dr. Nguyen, who did a blood test, shows significantly elevated creatinine and abnormal labs. He was subsequently rerouted here to the ER, where he was found to have a sodium of 137, potassium 5.4, bicarbonate 17, creatinine 11.1 with a white count of 58,000, hemoglobin 12.7, platelets 102. His INR is 1.27. LFTs within normal range. He has been on irbesartan, hydrochlorothiazide, metoprolol, pantoprazole, hydroxyurea, and amlodipine at home. He is currently receiving IV bicarbonate. At this point in time, they placed a Church catheter, had about 1800 mL of urine thus far. The patient states that he had very poor urine output if at all in the last 48 hours. He is otherwise awake, alert, lying down comfortably, in no apparent distress. He denies any fever and chills. Denies any abdominal pain. He had a kidney ultrasound done today shows right kidney 10.8 cm. No hydro. Left kidney 11.2. No hydro. Incidental splenomegaly with spleen measuring 15 cm. Complex left abdominal wall fluid collection compatible with rectus sheath hematoma. The patient is an ex-smoker. Does not drink. Lives by himself. At the moment, denies any diarrhea, fever, or chills. His urinalysis shows specific gravity 10/20, rbc's 11 to 20, wbc's none. PHYSICAL EXAMINATION: GENERAL: Awake, alert, lying supine, in no apparent distress. VITAL SIGNS: Blood pressure of 125/49, pulse rate 55, afebrile, respiratory rate 18, oxygen saturation 100%. HEAD AND NECK: Chronically arcus senilis noted. Oral mucosa dry. Neck veins flat. LUNGS: Relatively clear. No rales. HEART: S1 and S2 audible. ABDOMEN: Still shows sign of fading ecchymosis. There is what appears to be mass obliquely placed over the rectus muscle, more towards the left hypochondrium area. Spleen felt. Normal hepatomegaly. Nontender abdomen, some mild ecchymosis noted over the right groin area. EXTREMITIES: Lower extremity, no edema. GENITOURINARY: Urine appears yellow. I will ask the nurse to clamp the Church catheter for 3 hours and then release. IMPRESSION: Obstructive uropathy. Underlying bladder neck obstruction, most likely due to prostate enlargement. We will discontinue the existing IV bicarb. We will start D5 water with 3 amps sodium bicarb at 100 mL an hour. Start Flomax 0.4 mg p.o. at bedtime. Please do not renew his home medication. Dr. Nguyen has been consulted. I suspect he may have chronic lymphocytic leukemia. He has been relatively afebrile. We will empirically give him one dose of IV antibiotic in the form of ceftriaxone. He has bladder instrumentation as well as urinary retention. Discussed with the patient and son. Further recommendations to follow. MD SHERRELL Winters/JAN /[id number]
[2019-05-15] VITALS (8 sets, daily range): BP systolic 143–162; BP diastolic 64–75
--- NOTE | 2019-05-15 00:07 | NUR ---
WALKING ROUNDS MADE, PATIENT RESTING COMFORTABLY IN BED WITHOUT ACUTE DISTRESS. HE DENIES PAIN, NO RESPIRATORY DISTRESS OBSERVED. CALL LIGHT WITHIN EASY REACH, HE'S INSTRUCTED TO CALL FOR ASSISTANCE NEEDED.
--- NOTE | 2019-05-15 02:29 | Consultation ---
DATE OF CONSULTATION: 05/14/2019 CONSULTATION REQUESTED: Dr. Abreu. REASON FOR CONSULTATION: Followup of myeloproliferative syndrome. HISTORY OF PRESENT ILLNESS: Thank you very kindly, Dr. Abreu for letting me participate in the care of this very pleasant 89-year-old male, who is well known to me. I have him in consultation last week when he was admitted with extensive hematoma of the abdomen following angiography and stent placement in his right popliteal artery. I have been following him for myeloproliferative syndrome, polycythemia vera and treated with phlebotomy and hydroxyurea for almost 15 years. He also has a background of atrial fibrillation, prior DVT and had been on Xarelto. The Xarelto was stopped after the hematoma was noted. He was in the office yesterday complaining of weakness and was clinically dehydrated. He received a bag of normal saline, felt better and went home, had labs drawn yesterday. The labs came back today revealing creatinine of 10. He was still feeling weak and poorly and was asked to report to the emergency room from where he was admitted to the hospital. There is no history of fever. No gross sully bleeding from any site today. He was admitted to the hospital and has been seen by Nephrology and is receiving fluids. I have reviewed the chart, interviewed the patient, examined him, and reviewed the labs. Significant findings include clinically dehydration. Lungs are clear. Abdomen is soft. LABORATORY DATA: White count is 58.36, hemoglobin 12.7, platelet count is 1.02 million. Chemistries revealed creatinine of 11.1, potassium is 5.4. IMPRESSION: Acute renal injury being managed by Nephrology, myeloproliferative syndrome with leukocytosis and thrombocytosis. We will start hydroxyurea 1 gram daily for 2 days, followed by 500 mg daily with followup CBC in 2 days. MD JANN Flanagan/JAN /[id number]
--- NOTE | 2019-05-15 03:35 | NUR ---
NO RESPIRATORY DISTRESS OBSERVED, PATIENT DENIES PAIN. IV FLUID INFUSING ORDERED, FLORES CATHETER DRAINING CLEAR NADEGE COLOR URINE.
[2019-05-15 06:46] LABS: BASOPHILS # (AUTO) 0.3 (0.0-0.1); BASOPHILS % 0.8 % (0.0-1.0); EOSINOPHILS # (AUTO) 0.7 (0.0-0.4); EOSINOPHILS % 1.8 % (0.0-6.0); HEMATOCRIT 37.9 % (38.2-49.6); HEMOGLOBIN 10.6 g/dL (14.0-18.0); LYMPHOCYTES # (AUTO) 14.3 (1.0-3.2); LYMPHOCYTES % 38.1 % (18.0-39.1); MEAN CORPUSCULAR HEMOGLOBIN 20.5 pg (28-32); MEAN CORPUSCULAR VOLUME 73.4 fL (81-99); MONOCYTES # (AUTO) 1.4 (0.2-0.8); MONOCYTES % 3.6 % (4.4-11.3); NEUTROPHILS # (AUTO) 20.4 (2.1-6.9); NEUTROPHILS % 54.3 % (38.7-80.0); PLATELET COUNT 743 x10e3/uL (140-360); RED BLOOD COUNT 5.16 x10e6/uL (4.3-5.7); RED CELL DISTRIBUTION WIDTH 23.9 % (11.7-14.4)
[2019-05-15 07:10] LABS: ALBUMIN 2.3 g/dL (3.5-5.0); ALBUMIN/GLOBULIN RATIO 0.9 (0.8-2.0); CALCIUM 7.7 mg/dL (8.4-10.2)
[2019-05-15 07:27] LABS: CREATININE, SERUM 2.45 mg/dL (0.72-1.25)
--- NOTE | 2019-05-15 07:30 | NUR ---
Bedside report received from YOSVANY Obando. Pt is resting comfortably in bed in no acute distress noted, he denies pain at this time. Redness, warmth, and swelling noted to right upper arm pt sts "it was from previous IV that was there" pt denies pain to site but requested not to use left arm for IV, blood draw or bp. Left arm elevated with a pillow.
[2019-05-15 08:07] LABS: EOSINOPHILS % (MANUAL) 2 % (0-7); LYMPHOCYTES % (MANUAL) 10 % (19-48); MONOCYTES % (MANUAL) 3 % (3.4-9.0); NEUTROPHILS % (MANUAL) 85 % (40-74)
[2019-05-15 08:08] LABS: ANISOCYTOSIS MODERATE
[2019-05-15 08:13] LABS: HYPOCHROMASIA SLIGHT
[2019-05-15 08:14] LABS: ELLIPTOCYTE, RBC SLIGHT; MICROCYTOSIS SLIGHT; OVALOCYTES FEW
[2019-05-15 08:15] LABS: PLATELET ESTIMATE MARKEDLY INCREASED; PLATELET MORPHOLOGY COMMENT NORMAL
[2019-05-15 08:16] LABS: LARGE PLATELETS FEW; RBC MORPHOLOGY COMMENT ABNORMAL
[2019-05-15] MEDS: SODIUM BICARBONATE 8.4% SYRING 150 ML in DEXTROSE 5% 1,000 ML IV SCH ×2 (08:16→15:03)
[2019-05-15] MEDS: HYDROXYUREA 500 MG CAPSULE PO SCH ×2 (09:00→16:31)
[2019-05-15] MEDS: DEXTROSE 5%/0.45% SOD CHL 1,000 ML IV SCH (18:00)
--- NOTE | 2019-05-15 18:01 | NUR ---
Pt requested assistance to ambulate to the bathroom to have a bm, specipan provided for pending stool collection but pt was not able to aim properly at this time, will endorse pending stool collection to oncoming nurse. Assisted pt back in bed. New order for D5 1/2 ns started.
--- NOTE | 2019-05-15 19:30 | NUR ---
change of shift report given to YOSVANY Bowden at bedside. Pt is resting comfortably in bed, resp even and unlabored, IVF infusing well to RFA. Instructed to use the call light for assistance. Pt verbalized understanding. Pt denies pain at this time.
[2019-05-15] MEDS: TERAZOSIN HCL 1 MG CAP PO SCH (22:02)
[2019-05-15] MEDS: TAMSULOSIN HCL 0.4 MG CAP PO SCH (22:02)
[2019-05-16] VITALS (7 sets, daily range): BP systolic 136–160; BP diastolic 65–71
[2019-05-16] MEDS: DEXTROSE 5%/0.45% SOD CHL 1,000 ML IV SCH (06:26)
[2019-05-16 06:34] LABS: BASOPHILS # (AUTO) 0.3 (0.0-0.1); BASOPHILS % 0.8 % (0.0-1.0); EOSINOPHILS # (AUTO) 0.5 (0.0-0.4); EOSINOPHILS % 1.5 % (0.0-6.0); HEMATOCRIT 36.6 % (38.2-49.6); HEMOGLOBIN 10.3 g/dL (14.0-18.0); LYMPHOCYTES # (AUTO) 12.2 (1.0-3.2); LYMPHOCYTES % 36.6 % (18.0-39.1); MEAN CORPUSCULAR HEMOGLOBIN 20.5 pg (28-32); MEAN CORPUSCULAR HGB CONC 28.1 g/dL (31-35); MEAN CORPUSCULAR VOLUME 72.9 fL (81-99); MONOCYTES # (AUTO) 1.1 (0.2-0.8); MONOCYTES % 3.3 % (4.4-11.3); NEUTROPHILS # (AUTO) 18.8 (2.1-6.9); NEUTROPHILS % 56.4 % (38.7-80.0); PLATELET COUNT 674 x10e3/uL (140-360); RED BLOOD COUNT 5.02 x10e6/uL (4.3-5.7); RED CELL DISTRIBUTION WIDTH 23.6 % (11.7-14.4)
[2019-05-16 06:57] LABS: ALANINE AMINOTRANSFERASE 12 IU/L (0-55); ALBUMIN 2.2 g/dL (3.5-5.0); ALBUMIN/GLOBULIN RATIO 0.8 (0.8-2.0); ALKALINE PHOSPHATASE 124 IU/L (40-150); ANION GAP 10.9 mmol/L (8-16); BLOOD UREA NITROGEN 18 mg/dL (7-26); BUN/CREATININE RATIO 19 (6-25); CALCIUM 7.8 mg/dL (8.4-10.2); CARBON DIOXIDE 25 mmol/L (22-29); CHLORIDE 104 mmol/L (98-107); EST GLOMERULAR FILTRATION RATE > 60 ML/MIN (60-); GLUCOSE 134 mg/dL (74-118); POTASSIUM 3.9 mmol/L (3.5-5.1); SODIUM 136 mmol/L (136-145)
--- NOTE | 2019-05-16 07:00 | NUR ---
Bedside report and rounds done. no s/s of distress
[2019-05-16 07:44] LABS: CREATININE, SERUM 0.94 mg/dL (0.72-1.25)
[2019-05-16] MEDS: HYDROXYUREA 500 MG CAPSULE PO SCH (09:21)
[2019-05-16 13:45] LABS: OCCULT BLOOD STOOL POSITIVE (NEGATIVE)
[2019-05-16 14:53] LABS: C DIFFICILE TOXIN A&B AMP PROB NEGATIVE (NEGATIVE)
--- NOTE | 2019-05-16 20:05 | NUR ---
PT SLEEPING COMFORTABLY IN BED AT THIS TIME. RESPIRATIONS ARE REGULAR, EVEN, PT APPEARS IN NO DISTRESS. BED IS LOCKED AND IN LOW POSITION. CALL LIGHT IS IN REACH.
[2019-05-16] MEDS: TAMSULOSIN HCL 0.4 MG CAP PO SCH (21:09)
[2019-05-16] MEDS: TERAZOSIN HCL 1 MG CAP PO SCH (21:11)
[2019-05-17] VITALS (9 sets, daily range): BP systolic 125–184; BP diastolic 62–96
--- NOTE | 2019-05-17 07:00 | NUR ---
received am report from rn. pt is resting comfortably in bed, no s/s of distress. call light is within reach, bed in lowest position, side rails up.
[2019-05-17] MEDS: HYDROXYUREA 500 MG CAPSULE PO SCH (09:01)
--- NOTE | 2019-05-17 16:29 | NUR ---
IMM LETTER EXPLAINED TO PT. PT VERBALIZED UNDERSTANDING. IMM LETTER SIGNED. COPY TO PT AND COPY TO CHART. PT STATES HE WOULD LIKE HOME HEALTH WHEN DC'D. CALLED TO SH[facility] ALEX; FRIEND @ [phone], FOR NAME OF RECOMMENDED HH AGENCY. NO ANSWER. SHANE CALLED . STATES HER PARENTS USE [facility] AND HAVE RECEIVED GOOD SERVICES. CHOICE LETTER WAS SIGNED BY THE PT. NOTE LEFT FOR DR. NORMAN FOR AN ORDER FOR HOME HEALTH.
--- NOTE | 2019-05-17 21:12 | NUR ---
spoke with dr. Abreu regarding elevated bp and hr, orders to renew home meds- amlodipine and metoprolol- first dose now. orders entered, and implemented. will continue to monitor the patient.
[2019-05-17] MEDS ORDERED: NON-FORMULARY MEDICATION (Metoprolol Succinate 100 MG) PO SCH (21:15)
[2019-05-17] MEDS: TAMSULOSIN HCL 0.4 MG CAP PO SCH (21:33)
[2019-05-17] MEDS: METOPROLOL SUCCINATE 50 MG TAB XL PO SCH (21:33)
[2019-05-17] MEDS: AMLODIPINE BESYLATE 10 MG TAB PO SCH (21:33)
[2019-05-18] VITALS (9 sets, daily range): BP systolic 124–152; BP diastolic 58–67
[2019-05-18 07:17] LABS: BASOPHILS # (AUTO) 0.3 (0.0-0.1); BASOPHILS % 0.7 % (0.0-1.0); EOSINOPHILS # (AUTO) 1.2 (0.0-0.4); EOSINOPHILS % 3.4 % (0.0-6.0); HEMATOCRIT 38.8 % (38.2-49.6); HEMOGLOBIN 10.5 g/dL (14.0-18.0); LYMPHOCYTES # (AUTO) 14.4 (1.0-3.2); LYMPHOCYTES % 39.9 % (18.0-39.1); MEAN CORPUSCULAR HEMOGLOBIN 20.1 pg (28-32); MEAN CORPUSCULAR HGB CONC 27.1 g/dL (31-35); MEAN CORPUSCULAR VOLUME 74.3 fL (81-99); MONOCYTES # (AUTO) 1.4 (0.2-0.8); NEUTROPHILS # (AUTO) 18.4 (2.1-6.9); NEUTROPHILS % 51.1 % (38.7-80.0); PLATELET COUNT 671 x10e3/uL (140-360); RED BLOOD COUNT 5.22 x10e6/uL (4.3-5.7); RED CELL DISTRIBUTION WIDTH 23.5 % (11.7-14.4)
[2019-05-18 07:37] LABS: ALANINE AMINOTRANSFERASE 6 IU/L (0-55); ALBUMIN/GLOBULIN RATIO 0.6 (0.8-2.0); ALKALINE PHOSPHATASE 106 IU/L (40-150); ANION GAP 13.1 mmol/L (8-16); BLOOD UREA NITROGEN 15 mg/dL (7-26); BUN/CREATININE RATIO 18 (6-25); CALCIUM 8.1 mg/dL (8.4-10.2); CARBON DIOXIDE 23 mmol/L (22-29); CHLORIDE 102 mmol/L (98-107); CREATININE, SERUM 0.82 mg/dL (0.72-1.25); EST GLOMERULAR FILTRATION RATE > 60 ML/MIN (60-); GLUCOSE 95 mg/dL (74-118); POTASSIUM 4.1 mmol/L (3.5-5.1); SODIUM 134 mmol/L (136-145)
--- NOTE | 2019-05-18 08:00 | NUR ---
Patient alert and responsive, no resp distress, rounds complete and Church cath in place draining yellow concentrated urine, no discomfort reported, call light within reach, will monitor.
[2019-05-18] MEDS: HYDROXYUREA 500 MG CAPSULE PO SCH (09:18)
[2019-05-18] MEDS: AMLODIPINE BESYLATE 10 MG TAB PO SCH (09:18)
[2019-05-18] MEDS: METOPROLOL SUCCINATE 50 MG TAB XL PO SCH (09:19)
--- NOTE | 2019-05-18 14:02 | NUR ---
HOME HEALTH DISCHARGE NOTE PATIENT ADDRESS WHERE SERVICE WILL BE RECEIVED: [address] [place] [id number] PATIENT CONTACT NUMBER: [phone] NAME OF HOME HEALTH COMPANY: [facility] TELEPHONE/FAX NUMBER OF COMPANY: OFF: [phone] / FAX: [phone] ADDRESS OF COMPANY: [address] [place] [id number] SERVICES TO RECEIVE: [facility]; TEACH ANTICIPATED DATE SERVICES WILL BEGIN: 05/19/2019 Please call the company above if you have not received a call to schedule a home visit within 24 hours of discharge.
--- NOTE | 2019-05-18 16:42 | NUR ---
Spoke with Dr. Abreu and informed PT is recommending SNF for patient due to safety reasons at this time and does not have any help at home, requires supervision. Orders obtained for a SNF eval and patient agrees with this.
[2019-05-18] MEDS: TAMSULOSIN HCL 0.4 MG CAP PO SCH (21:10)
--- NOTE | 2019-05-18 21:10 | NUR ---
PATIENT IS AOX4, NO RESPIRATORY DISTRESS NOTED, URINARY CATHETER IN PLACE AND PATENT, YELLOW COLOR URINE. BED IS IN LOCKED POSITION AND LOW, CALL LIGHT WITHIN REACH, WILL CONTINUE TO MONITOR.
[2019-05-19] VITALS (8 sets, daily range): BP systolic 132–147; BP diastolic 58–66
--- NOTE | 2019-05-19 03:13 | NUR ---
UPON MAKING ROUNDS, PATIENT IS RELAXING IN BED, BOTH EYES ARE CLOSED. NO RESPIRATORY DISTRESS NOTED, SIDE RAILS ARE UP, BED IS LOCKED AND LOW, CALL LIGHT WITHIN REACH, WILL CONTINUE TO MONITOR.
[2019-05-19] MEDS: HYDROXYUREA 500 MG CAPSULE PO SCH (08:48)
[2019-05-19] MEDS: METOPROLOL SUCCINATE 50 MG TAB XL PO SCH (08:49)
[2019-05-19] MEDS: AMLODIPINE BESYLATE 10 MG TAB PO SCH (08:49)
--- NOTE | 2019-05-19 09:20 | NUR ---
patient resting in bed, tolerated breakfast, denies any pain, no distress noted
--- NOTE | 2019-05-19 11:57 | NUR ---
PATIENT WITH HOME HEALTH SET UP. WROTE FOR SNF EVAL. PATIENT AND PATIENT FAMILY REQUESTS TO GO HOME WITH HOME HEALTH SERVICES AT THIS TIME. GINA LM FOR MD TO CANCEL SNF, NO RETURN CALL AT THIS TIME.
--- NOTE | 2019-05-19 19:00 | NUR ---
patient received awake, alert, lying quietly in bed. no c/o pain noted at this time. quezada catheter intact. patient repositioned for comfort. pm assessment complete. patient instructed to call for assistance when needed.
[2019-05-19] MEDS: TAMSULOSIN HCL 0.4 MG CAP PO SCH (20:36)
[2019-05-20] VITALS (8 sets, daily range): BP systolic 121–145; BP diastolic 57–65
[2019-05-20 06:32] LABS: BASOPHILS # (AUTO) 0.3 (0.0-0.1); BASOPHILS % 0.9 % (0.0-1.0); EOSINOPHILS % 2.7 % (0.0-6.0); HEMOGLOBIN 10.6 g/dL (14.0-18.0); LYMPHOCYTES # (AUTO) 16.3 (1.0-3.2); LYMPHOCYTES % 42.7 % (18.0-39.1); MEAN CORPUSCULAR HEMOGLOBIN 20.3 pg (28-32); MEAN CORPUSCULAR HGB CONC 27.2 g/dL (31-35); MEAN CORPUSCULAR VOLUME 74.9 fL (81-99); MONOCYTES # (AUTO) 1.7 (0.2-0.8); MONOCYTES % 4.5 % (4.4-11.3); NEUTROPHILS # (AUTO) 18.3 (2.1-6.9); PLATELET COUNT 682 x10e3/uL (140-360); RED BLOOD COUNT 5.21 x10e6/uL (4.3-5.7)
--- NOTE | 2019-05-20 06:54 | NUR ---
RECEIVED PATIENT RESTING IN BED. RESPIRATIONS EVEN AND UNLABORED, NO ACUTE DISTRESS NOTED. DENIES PAIN OR DISCOMFORT AT THIS TIME. CALL LIGHT WITHIN REACH. BED IN THE LOWEST POSITION. BED ALARM ON.
[2019-05-20 07:00] LABS: ALANINE AMINOTRANSFERASE 11 IU/L (0-55); ALBUMIN/GLOBULIN RATIO 0.6 (0.8-2.0); ALKALINE PHOSPHATASE 119 IU/L (40-150); ANION GAP 13.2 mmol/L (8-16); BLOOD UREA NITROGEN 16 mg/dL (7-26); BUN/CREATININE RATIO 17 (6-25); CALCIUM 8.1 mg/dL (8.4-10.2); CARBON DIOXIDE 22 mmol/L (22-29); CHLORIDE 103 mmol/L (98-107); CREATININE, SERUM 0.92 mg/dL (0.72-1.25); EST GLOMERULAR FILTRATION RATE > 60 ML/MIN (60-); GLUCOSE 95 mg/dL (74-118); POTASSIUM 4.2 mmol/L (3.5-5.1); SODIUM 134 mmol/L (136-145)
[2019-05-20] MEDS: METOPROLOL SUCCINATE 50 MG TAB XL PO SCH (08:31)
[2019-05-20] MEDS: AMLODIPINE BESYLATE 10 MG TAB PO SCH (08:31)
[2019-05-20] MEDS: HYDROXYUREA 500 MG CAPSULE PO SCH (08:31)
[2019-05-20 09:17] LABS: EOSINOPHILS % (MANUAL) 4 % (0-7); LYMPHOCYTES % (MANUAL) 45 % (19-48); MONOCYTES % (MANUAL) 1 % (3.4-9.0); NEUTROPHILS % (MANUAL) 48 % (40-74); PLATELET ESTIMATE MODERATELY INCREASED; PLATELET MORPHOLOGY COMMENT NORMAL; RBC MORPHOLOGY COMMENT ABNORMAL; SMUDGE CELLS MODERATE
[2019-05-20 09:22] LABS: ANISOCYTOSIS SLIGHT; POLYCHROMASIA SL; TEAR DROP CELLS FEW
--- NOTE | 2019-05-20 18:47 | NUR ---
REPORT GIVEN TO ONCOMING NURSE, WALKING ROUNDS DONE. PATIENT IS RESTING IN BED. NO ACUTE DISTRESS NOTED. NO S/S OF PAIN NOTED. CALL LIGHT WITHIN REACH. BED IN THE LOWEST POSITION.
--- NOTE | 2019-05-20 19:00 | NUR ---
patient received awake, alert, lying quietly in bed. no c/o pain noted at this time. patient repositioned for comfort. pm assessment complete. call douglass placed within reach. patient instructed to call for assistance when needed.
[2019-05-20] MEDS: TAMSULOSIN HCL 0.4 MG CAP PO SCH (20:57)
[2019-05-21] VITALS (9 sets, daily range): BP systolic 102–131; BP diastolic 49–71
--- NOTE | 2019-05-21 06:52 | NUR ---
RECEIVED PATIENT RESTING IN BED. NO ACUTE DISTRESS NOTED. NO S/S OF PAIN NOTED AT THIS TIME. CALL LIGHT WITHIN REACH. BED IN THE LOWEST POSITION BED ALARM ON.
[2019-05-21] MEDS: AMLODIPINE BESYLATE 10 MG TAB PO SCH (08:26)
[2019-05-21] MEDS: HYDROXYUREA 500 MG CAPSULE PO SCH (08:26)
[2019-05-21] MEDS: METOPROLOL SUCCINATE 50 MG TAB XL PO SCH (08:27)
--- NOTE | 2019-05-21 13:20 | NUR ---
NOTIFIED DR. NORMAN OF ESCHAR ON LEFT 4TH TOE AND DTI TO RIGHT GREAT AND SECOND TOE. ASKED MD FOR POSSIBLE PODIATRY CONSULT, WAITING ON ANSWER.
--- NOTE | 2019-05-21 14:27 | NUR ---
WOUND CARE CONSULTATION: THIS IS AN 89 YEAR OLD MALE PATIENT ADMITTED TO [facility] FOR ISABEL, URINARY RETENTSION, AND DIARRHEA. PATIENT HAS A HISTORY OF MYELOPROLIFERATIVE SYNDROME, POLYCYTHEMIA VERA, A FIB, AND DVT. HEAD TO TOE SKIN ASSESSMENT PERFORMED. PATIENT HAS A STAGE 2 PRESSURE ULCER TO THE SACRAL CREASE MEASURING 1.5X0.5X0.1CM, 100% PINK GRANULATION NOTED TO WOUND BED. PATIENT HAS MULTIPLE BRUISES NOTED TO THE ABDOMEN, BACK, AND GROIN AREA. PATIENT STATED "THE BRUISES ARE FROM PREVIOUS PROCEDURE I HAD RECENTLY". ACCORDING TO H & P OF DR. NORMAN, THE PATIENT HAD RECENT PERIPHERAL ANGIOPLASTY AND STENT PLACEMENT THAT WAS COMPLICATED BY ECCHYMOSIS AND HEMATOMA INVOLVING HIS RIGHT GROIN AND ABDOMINAL WALL, THAT IS RESOLVING. PATIENT HAS A LEFT 4TH TOE DTI MEASURING 1.7X2X0.1CM, 30% ESCAR COVERING WOUND BED AND 70% DTI NOTED AND PERIWOUND DTI NOTED. PATIENT HAS A DTI TO THE RIGHT GREAT TOE MEASURING 3D4C3MG. PATIENT HAS A RIGHT 2ND TOE DTI MEASURING 2.5X2.2X0CM. PATIENT HAS LEFT ELBOW 2+ LOCALIZED EDEMA RELATED TO RECENT IV INFILTRATION. YOSVANY COLLADO THE ASSIGNED NURSE IS AT THE BEDSIDE DURING ASSESSMENT. DR. NORMAN NOTIFIED OF NEW DTI'S TO RIGHT GREAT TOE AND SECOND TOE AND LEFT 4TH TOE ESCHAR WITH PERIWOUND DTI BY ASSIGNED NURSE AND MYSELF. DR. NORMAN TO CONSULT PODIATRY TO SEE PATIENT. PODIATRY NAME PENDING HIS RETURN CALL. NURSE YOSVANY COLLADO AWARE OF CALL BACK FROM DR. NORMAN. LABS: WBC38.19 ALB2.0 [id number] BLOOD CULTURE = NEGATIVE STOOL CULTURE = NEGATIVE RECOMMENDATIONS: -NURSING TO APPLY ALTERNATION PRESSURE RELIEF MATTRESS. -APPLY BILATERAL HEEL PROTECTORS WITH PILLOW SUSPENSION. -TURN EVERY 2 HOURS AND PRN. -NURSING TO CLEAN STAGE 2 PRESSURE ULCER TO SACRAL CREASE WITH NORMAL SALINE, PAT DRY, APPLY VENELEX THEN ALLEVYN FOAM DRESSING; CHANGE DAILY AND PRN. -NURSING TO CLEAN LEFT 4TH TOE DTI WITH NORMAL SALINE, PAT DRY, APPLY BETADINE, 4X4 GAUZE, KERLIX; CHANGE DAILY AND PRN. -NURSING TO CLEAN RIGHT GREAT TOE DTI AND RIGHT 2ND TOE DTI WITH NORMAL SALINE, PAT DRY, APPLY VENELEX AND FOAM DRESSING; CHANGE DAILY AND PRN. -PATIENT INSTRUCTED TO ELEVATE LEFT ELBOW ON PILLOWS TO ASSIST TO DECREASE EDEMA. PATIENT VERBALIZED UNDERSTANDING. -PODIATRY CONSULT PENDING DR. NORMAN RESPONSE; ASSIGNED RN AWARE. THANK YOU FOR THIS WOUND CARE CONSULT. Addendum: 05/21/19 at 1458 by Kassy Schulz RN Amended: Links added. Addendum: 05/22/19 at 0912 by Kassy Schulz RN WOUND CARE CONSULTATION (LATE ENTRY): AFTER FURTHER REVIEW OF PATIENT HISTORY AND RECENT PERIPHERAL ANGIOPLASTY WITH STENT PLACEMENT, THE LEFT 4TH TOE ULCER IS AN ARTERIAL ULCER MEASURING 1.7X2X0.1CM, 30% ESCHAR COVERING WOUND BED WITH DECOLORIZATION TO PERIWOUND. THE RIGHT GREAT TOE ULCER IS AN ARTERIAL ULCER MEASURING [id number], SKIN INTACT AND DECOLORIZATION NOTED TO ULCERATION WOUND BED. THE RIGHT SECOND TOE IS AN ARTERIAL ULCER MEASURING 2.5X2.2X0CM, SKIN INTACT AND DECOLORIZATION NOTED TO ULCERATION WOUND BED. PATIENT HAS WEAK PALPABLE PULSES NOTED TO PT AND DP TO BILATERAL LOWER EXTREMITIES. DR. NORMAN AWARE AND PODIATRY CONSULT PENDING HIS PREFRENCE OF PODIATRY TO CONSULT FOR PATIENT TO BE ASSESSED PRIOR TO DISCHARGE. RECOMMENDATION: -NURSING TO CLEAN LEFT 4TH TOE ARTERIAL ULCER WITH NORMAL SALINE, PAT DRY, APPLY BETADINE, 4X4 GAUZE, KERLIX; CHANGE DAILY AND PRN. -NURSING TO CLEAN RIGHT GREAT TOE ARTERIAL ULCER AND RIGHT SECOND TOE ARTERIAL ULCER WITH NORMAL SALINE, PAT DRY, APPLY VENELEX AND FOAM DRESSING, THEN KERLIX; CHANGE DAILY AND PRN. THANK YOU FOR THIS WOUND CARE CONSULT.
[2019-05-21] MEDS: BALSAM PERU/CASTOR OIL 60 GM OINT...G. TP SCH (15:29)
--- NOTE | 2019-05-21 18:55 | NUR ---
Nutrition Screen Note RD Recommendation for Physician: -Continue with diet as prescribed -Pt refused oral nutrition supplements -Rec MVi w/minerals, vitamin C for wound healing Plan of Care: RD following, monitoring for tolerance and adequacy Nutrition reason for involvement: LOS Primary Diagnose(s): ISABEL, urinary retention PMH: myeloproliferative syndrome, polycythemia vera, A-fib, and DVT Ht: 73in (verified with pt) Wt: 172lb BMI: 22.7kg/m2 IBW: 184lb RD Assessment: (05/21) Chart reviewed. Labs and meds reviewed. 89yo M, who is admitted for ISABEL and urinary retention. Renal function WNL. Visited pt in the room. Pt reported fair appetite with 75-100% recorded meal intake since admission. No complains of nausea or vomiting. Pt denied any chewing or swallowing difficulty. LBM 05/19, flatus present. Pt reports of ~3-5lbs weight loss for the last month. Pt is not interested in any oral nutrition supplements. Current diet is appropriate and adequate. No sign of muscle/ fat loss upon observation. Will continue to monitor and follow. Current Diet: cardiac diet Malnutrition Evaluation (05/21) The patient does not meet criteria for a specified degree of malnutrition at this time. Will re-evaluate at follow-up as appropriate. Diet Education Needs Assessment: Diet education not indicated. Nutrition Care Level: low Signed: Jennifer Waters MS, RD, LD
--- NOTE | 2019-05-21 19:21 | NUR ---
REPORT GIVEN TO ONCOMING NURSE. PATIENT IS RESTING IN BED. NO ACUTE DISTRESS NOTED. NO S/S OF PAIN NOTED. CALL LIGHT WITHIN REACH. BED IN THE LOWEST POSITION.
[2019-05-21] MEDS: TAMSULOSIN HCL 0.4 MG CAP PO SCH (21:15)
--- NOTE | 2019-05-21 21:38 | NUR ---
PATIENT CONDITION STABLE WITHOUT DISTRESS, HE DENIES PAIN. HE'S ENCOURAGED TO REPOSITION FREQUENTLY IN BED, CALL LIGHT WITHIN EASY REACH.
[2019-05-22 00:24] VITALS: BP 130/57
--- NOTE | 2019-05-22 02:40 | NUR ---
NO RESPIRATORY DISTRESS OBSERVED, ASSISTED WITH ADLS, PATIENT DENIES PAIN. FLORES CATHETER INTACT, DRAINING CLEAR YELLOW COLOR URINE.
[2019-05-22 05:15] VITALS: BP 133/62
--- NOTE | 2019-05-22 07:15 | NUR ---
REC'D PATIENT AAOX3, RIGHT FA 20 GAUGE CLEAN AND INTACT, HAS A FLORES, ON ROOM AIR. NO S/S OF DISTRESS. BED IN LOWEST POSITION, SIDE RAILS UPX2, AND CALL COPE WITHIN REACH.
[2019-05-22 07:30] VITALS: BP 124/59
[2019-05-22 07:41] VITALS: BP 124/59
[2019-05-22] MEDS: AMLODIPINE BESYLATE 10 MG TAB PO SCH (08:31)
[2019-05-22] MEDS: HYDROXYUREA 500 MG CAPSULE PO SCH (08:31)
[2019-05-22] MEDS: METOPROLOL SUCCINATE 50 MG TAB XL PO SCH (08:32)
[2019-05-22] MEDS: BALSAM PERU/CASTOR OIL 60 GM OINT...G. TP SCH (08:32)
--- NOTE | 2019-05-22 11:19 | NUR ---
MET W THE PT AT THE BEDSIDE TO DISCUSS SNF. PT STATES HE WILL GO TO A REHAB/SNF. STATES HE SPOKE W DR. NORMAN AND NOW AGREES. PT PROVIDED CHOICE. REQUESTED TO GO TO A FACILITY NEAR HERE. DISCUSSED [facility] AND [facility]. PT CHOSE [facility]. CHOICE LETTER SIGNED AND COPY TO PT AND COPY TO CHART. CLINICALS FAXED TO [facility] @ OFF: [phone] / FAX: [phone]. SPOKE Darcy ORANTES IN INTAKE RTF INITIATED.
[2019-05-22 11:34] VITALS: BP 119/57
--- NOTE | 2019-05-22 12:15 | NUR ---
RTF AND PASRR COMPLETED AND FILED IN PACKET.
--- NOTE | 2019-05-22 14:04 | NUR ---
ACCEPTED TO ROOM 210B DR WILL BE GIVEN TO NURSE WHEN CALL REPORT TO [phone].
--- NOTE | 2019-05-22 14:20 | NUR ---
DR. NORMAN GAVE ORDER TO TRANSFER PATIENT TO SNF. CALLED TO GIVE REPORT TO NURSE LIGHT FROM [facility]. PAPERWORK GATHERED AND SIGNED AND READY FOR DISCHARGE.
[2019-05-22 16:03] VITALS: BP 120/58
--- NOTE | 2019-05-22 16:35 | NUR ---
IV TO RT FOREARM HAS BEEN REMOVED. NO COMPLICATIONS TO IV SITE AFTER REMOVAL. GAUZE AND TAPE APPLIED FOR PRESSURE. NO S/S OF DISTRESS. FLORES 16 F INTACT AND URINE FLOWING. PATIENT ON ROOM AIR. PATIENT AT BEDSIDE. EMS HERE TO TRANSFER PATIENT TO SNF.
--- NOTE | 2019-05-23 23:46 | Discharge Summary ---
DISCHARGE DIAGNOSES: 1. Acute renal failure, resolved secondary to benign prostatic hyperplasia myeloproliferative disorder. 2. Anemia. 3. Weakness. DISCHARGE DISPOSITION: [facility]. HISTORY OF PRESENT ILLNESS AND HOSPITAL COURSE: The patient has difficulty urinating and weakness and was found to have acute renal failure with a creatinine of 11. He had a Church placed with significant urine returned and within 2 days his kidney function will be back to normal. He was seen by Dr. Wagner, who states at this time we will continue with Flomax and continue with Church catheter. We will do outpatient urodynamic studies and due to his myeloproliferative disorder, where his platelet counts were in the 130 range, he was seen by his technical mgr baseline, but due to his weakness, the patient felt like he would [facility], outpatient studies. So, the patient was then transferred in stable condition . MD RYAN Wilder/JAN /[id number]
== END 2019-05-22 16:35 | DRG 683 ==
LOC: ER 09:41 → ERHOLD 11:28 → MED/SURG3 15:50
PROVIDERS: ADMIT Internal Medicine; ATTEND Internal Medicine
DX: N17.9 Acute kidney failure, unspecified (principal); N13.8 Other obstructive and reflux uropathy; C94.6 Myelodysplastic disease, not elsewhere classified; C91.10 Chronic lymphocytic leukemia of B-cell type not having achieved remission; R33.9 Retention of urine, unspecified; N40.1 Benign prostatic hyperplasia with lower urinary tract symptoms; D64.9 Anemia, unspecified; D45 Polycythemia vera; I48.91 Unspecified atrial fibrillation; Z86.718 Personal history of other venous thrombosis and embolism; Z79.01 Long term (current) use of anticoagulants; E86.0 Dehydration; E87.5 Hyperkalemia
CPT/HCPCS: 36415; 51700; 76770; 80053; 81001; 82270; 83735; 85025; 85610; 85730; 87040; 87045; 87493; 93005; 96361; 97139; 99284; J0696; J3370; J7030; J7070

== ENCOUNTER → 2019-12-17 | Outpatient (CLI) | payer MEDICARE ==
[~2019-12-17] MED LIST changes: +IOPAMIDOL 370 MG/ML 200 ML INFUS..BTL INJ ONE; +SODIUM CHLORIDE 0.9% 50ML 50 ML ONE
[2019-12-17 15:49] LABS: BLOOD UREA NITROGEN 21 mg/dL (7-26); BUN/CREATININE RATIO 19 (6-25); CREATININE, SERUM 1.09 mg/dL (0.72-1.25); EST GLOMERULAR FILTRATION RATE > 60 ML/MIN (60-)
--- NOTE | 2019-12-17 17:07 | Diagnostic Imaging Report ---
CT Pelvis with Intravenous Contrast INDICATION: ^[id number] ^1630 ^ELEVATED PSA TECHNIQUE: Thin collimation axial images obtained from the iliac crests to the proximal femurs before and following the uneventful administration of 100 cc of low osmolar, nonionic intravenous contrast. Dose reduction techniques used: Automated exposure control, adjustment of the mAs and/or kVp according to patient size, standardized low-dose protocol, and/or iterative reconstruction technique. RADIATION DOSE: Total DLP: 424.00 mGy*cm Estimated effective dose: (DLP x 0.015 x size factor) mSv CTDIvol has been reviewed. It is below the limits set by the Radiation Protocol Committee (RPC). COMPARISON: CT abdomen/pelvis 05/07/2019. Bowel: Small Bowel: Visualized portions are normal in diameter with normal wall thickness. Large Bowel: Diverticulosis coli. No associated inflammation. Appendix: Normal. Bladder: Collapsed around a Church catheter with circumferential mural thickening. The distal ureters are not distended. Prostate: Measures approximately 6.2 x 6.2 x 9.7 cm (AP, transverse, craniocaudal). Previously, the gland measured 5.0 x 4.6 cm in the axial plane. Seminal vesicles are poorly visualized. Lymph nodes: A right perivesicular lymph node measures 8 mm. A right obturator lymph node measures 8 mm. A left obturator lymph node measures 8 mm in short axis. Peritoneum/retroperitoneum: Trace amount of presacral edema. Small amount of fluid in the right paracolic gutter. Liver: Visualized portions are normal in attenuation without mass. Spleen: Enlarged with tiny calcified granulomata. Kidneys: Visualized kidneys demonstrate no evidence of mass. There is medial displacement of the left kidney secondary to the enlarged spleen. Aorta: Diffusely calcified but not aneurysmally dilated. Bones: Degenerative changes of the spine and hips. Sclerotic lesion in the right greater trochanter is stable. Punctate sclerotic lesions in the left ischial tuberosity and the right pubic symphysis are stable. Soft tissues: Intramuscular hematoma in the anterior wall the left lower quadrant has resolved. IMPRESSION: 1. The prostate gland has increased in size. Findings are concerning for prostate malignancy. 2. Church catheter is in appropriate position within the urinary bladder. 3. Nonspecific perivesicular and pelvic lymph nodes as described above. 4. Splenomegaly. Signed by: Dr. Pawan Quevedo MD on 12/17/2019 5:05 PM
--- NOTE | 2019-12-17 17:58 | Diagnostic Imaging Report ---
Bone Scan, delayed phase INDICATION: Elevated PSA. COMPARISON: CT pelvis 12/17/2019 REPORT: Approximately 3 hours following intravenous administration of 25 mCi of Tc-99m MDP, delayed total body images in the anterior and posterior projections and selected spot images were obtained. Scoliosis of the lower thoracic and lumbar spine is noted. Distribution of tracer activity is unremarkable throughout the skeletal system. No abnormal accumulation of tracer is seen in the soft tissues or urinary tract. IMPRESSION: No scan evidence of metastatic bone disease. Signed by: Dr. Ximena Wells M.D. on 12/17/2019 5:55 PM
== END ==
LOC: CT 05:00
PROVIDERS: ATTEND Urology
DX: R97.20 Elevated prostate specific antigen [PSA] (principal)
CPT/HCPCS: 36415; 72194; 78306; 82565; 84520; A9503; Q9967